=== PATIENT | female | born 1965 | race Hispanic/Latino ===

== ENCOUNTER → 2018-07-05 | Outpatient (CLI) | payer OTHER ==
[~2018-07-05] MED LIST: REGADENOSON 0.4 MG/5 ML PF SYG IVP SCH
== END | disposition home or self-care (01) ==
LOC: SHCH 07:59
PROVIDERS: ATTEND Internal Medicine Cardiovascular Disease
DX: I21.19 ST elevation (STEMI) myocardial infarction involving other coronary artery of inferior wall (principal)
CPT/HCPCS: 78452; 93017; 96374; A9500 ×2; J2785

== ENCOUNTER 2025-06-27 06:07 | Observation (INO) | payer BC ==
[2025-06-23 10:58] LABS: IMMATURE GRANULOCYTE ABSOLUTE 0.02 K/uL (0-1); NUCLEATED RED BLOOD CELLS 0.0 % (0.0-0.19); PLATELET COUNT (AUTO) 236 K/uL (130-400); RED BLOOD CELL COUNT(AUTO) 5.08 MIL/uL (4.00-5.50); RED CELL DISTRIBUTION WIDTH 13.6 % (11.0-15.5); WHITE BLOOD COUNT (AUTO) 6.8 K/uL (4.8-10.8)
[2025-06-23 11:02] VITALS: BP 131/55; PULSE 78; RESP 15; TEMP 98.4
[2025-06-23 11:02] LABS: APPEARANCE,URINE CLEAR (CLEAR); GLUCOSE, URINE (UA) NEGATIVE (NEGATIVE); LEUKOCYTE ESTERASE ,URINE NEGATIVE Leu/uL (NEGATIVE); NITRATE,URINE NEGATIVE (NEGATIVE); OCCULT BLOOD,URINE NEGATIVE (NEGATIVE)
[2025-06-23 11:10] LABS: CREATININE 0.6 mg/dL (0.5-1.0); GLOMERULAR FILTR. RATE CALC 103.0 mL/min (>90); GLUCOSE,RANDOM 93.0 mg/dL (70-105); SODIUM SERUM 140.0 mmol/L (136-145); UREA NITROGEN, BLOOD 20.0 mg/dL (7-18)
[2025-06-23 11:12] LABS: ADD UA MICROSCOPIC NO
[2025-06-23 11:31] LABS: INR 1.05 (0.85-1.15)
[2025-06-23 12:18] LABS: SQUAMOUS EPITHELIAL CELL,UR Rare /HPF (0-2)
--- NOTE | 2025-06-23 13:02 | NUR ---
PREOP KEELY RT INSTRUCTED PT ON INCENTIVE SPIROMETRY
--- NOTE | 2025-06-26 13:07 | NUR ---
REPORT REPORTED UA, CULTURE AND PT WAS RECENTLY TREATED FOR UTI WITH BACTRIM. DID INFORM DR COMER OF SENSITIVITY. RECEIVED ORDERS FOR LEVOFLOXACIN 500MG IV IN HOLDING.
[2025-06-27] VITALS (33 sets, daily range): BP systolic 112–187; BP diastolic 54–89; PULSE 67–94; RESP 14–21; TEMP 97.1–98.7; O2SAT 98
[~2025-06-27] VITALS: Ht 165.1 cm; Wt 119.7 kg
[~2025-06-27 06:07] MED LIST changes: +ACETAMINOPHEN PO; +APIX5TAB PO; +ATOR20TA65 PO; +CETI10TA57 PO; +CYCL-309 PO; +FLUT16H NASAL; +LORA0.5T83 PO; +LOSA100T59 PO; +METO-391 PO; +MONT-39 PO; +OMEP20CA12 PO; -REGADENOSON 0.4 MG/5 ML PF SYG IVP SCH; +SULF1TAB42 PO; +TRAMADOL PO; +VITAMIN D PO
[2025-06-27] MEDS: LACTATED RINGERS 1000ML 1,000 ML IV ONE (07:04)
[2025-06-27] MEDS ORDERED: LIDOCAINE HCL MPF 1% 5ML VIAL ONE (07:42)
[2025-06-27] MEDS ORDERED: MIDAZOLAM HCL 1 MG/ML 2ML VIAL ONE (07:43)
[2025-06-27] MEDS ORDERED: PROMETHAZINE HCL 25 MG/ML 1ML AMPULE IM PRN (08:00)
[2025-06-27] MEDS ORDERED: GLYCOPYRROLATE 0.2 MG/ML 5 ML VIAL ONE (11:00)
[2025-06-27] MEDS ORDERED: NEOSTIGMINE METHYLSULFATE 1MG/ML IV ONE (11:00)
[2025-06-27] MEDS ORDERED: FERROUS FUMARATE 324 MG TABLET PO PRN (11:30)
[2025-06-27] MEDS ORDERED: CALCIUM CARB 500MG PO PRN (11:30)
--- NOTE | 2025-06-27 11:30 | OP ---
Operative Note: DATE OF PROCEDURE: 06/27/25 SURGEON: ZAINAB COMER MD EVP MARKETING: [Jose Francisco Eric and Piedad Gross, TERRIE's] ANESTHESIA: [General anesthesia plus regional block] ANESTHESIOLOGIST/GLOBAL IMPLEMENTATION MANAGER: [] PREOPERATIVE DIAGNOSIS: [Right knee osteoarthritis] POSTOPERATIVE DIAGNOSIS: [Same] IMPLANTS: [Biomet vanguard. Femur size 72.5 PS right. Tibia size 71 fixed cruciate. Tibial liner size 71/75 X 12. Asymmetric patella size 34 X 8.5] PROCEDURE: [Right total knee arthroplasty] ESTIMATED BLOOD LOSS: [150 mL] INDICATIONS: [60-year-old female with a history of pain to the right knee secondary to osteoarthritis that has a longer responded to conservative treatment the patient is being admitted for a right total knee arthroplasty. Procedure understood by the patient, risks, benefits and possible complications and agreed signed the consent form.] DESCRIPTION OF PROCEDURE: [After adequate general anesthesia was achieved and regional block obtained the right lower extremity was prepped and draped in the usual manner previous placement of the tourniquet in the proximal thigh. The extremity was then elevated and exsanguinated with an Esmarch bandage and the tourniquet inflated to 300 mmHg the Esmarch band been then removed. With the knee in flexion a longitudinal incision was then made in the anterior aspect through the skin followed by dissection of the subcutaneous tissue. A paramedian approach was then made with the Bovie cautery cutting through the quadriceps tendon, medial patellar retinaculum and patellar tendon retinaculum. The retropatellar tendon fat was then excised and the soft tissue elements of the tibia were elevated subperiosteally and retractors were applied medially and laterally . The anterior and posterior cruciate ligaments were resected. With the use of a drill a starting hole was made in the distal femur entering the intramedullary canal and then after removal of the drill an intramedullary guide was inserted with a 5 degree valgus block that touched the distal femur and to this the distal femoral cutting guide was then applied anteriorly and was secured to the distal femur with the use of pins. The intramedullary guide was then removed and with the use of the oscillating saw we proceeded to resect the distal femur removing the fragments and the guide. The femoral sizer was then applied distally and drill holes were made removing the sizer and the 4-in-1 cutting block was then inserted and the anterior, posterior and chamfer cuts were made removing the fragments and the block. The PS cutting guide was then inserted and the intercondylar cut was made removing the fragment and the guide. The posterior cruciate ligament retractor was then inserted posterior to the tibia and this was brought forward proceeding then to apply the external tibial alignment guide and secured the proximal cutting guide to the tibia with the use of pins. With the use of the oscillating saw the proximal cut to the tibia tibia was made. The bone fragment was removed and the trial tibia plate was chosen. At this point the menisci were removed sharply and with the use of the curved osteotome the posterior osteophytes of the femur were removed. The trial components were then inserted at the femur and tibia with a trial tibial liner bringing the knee into extension noticing that the patient had a very stable knee in flexion, extension and with valgus and varus stress. The knee was maintained in extension and the patella was then addressed proceeding to measure its thickness and then with the use of the oscillating saw we removed nine mm from the articular surface and restored the height with application of a trial component after 3 peg holes were made. The patellofemoral ligament was removed and then the patellofemoral tracking was checked noticing to be significantly lateralized and for this reason a long lateral retinacular release was performed bringing the tracking back to normal. At this moment all the components were removed, the tibia after the metaphyseal defect was created and while cement was being mixed on the back table we proceeded to irrigate the joint with antibiotic solution and then cover the entry to the femoral canal with a bone plug. Once the cement was ready we proceeded to apply it first to the tibia surface inserting the final component and then to the femoral surface and inserted the final component removing the excess cement and then applying a trial liner bringing the knee into extension for compression. Then we proceeded to irrigate the patella surface and dried it applying then bone cement and the final patellar component was inserted and was secured with application of a clamp. The joint was irrigated with a warm diluted Betadine solution while the cement dried followed by irrigation with antibiotic solution. The trial liner was removed as well as the patellar clamp and we proceeded then to irrigate the posterior aspect of the joint to remove all the remaining debris and the final tibial liner was inserted and locked against the tibia. The range of motion was checked and noticed to be adequate with full extension and flexion, no laxity in valgus or varus stress and with adequate patellofemoral tracking. The patient had no anterior or posterior drawer. The tourniquet was then deflated and this was followed by hemostasis and the wound was then closed with approximation of the quadriceps tendon, patellar retinaculum and patellar tendon retinaculum with #1 Vicryl close stitches alternating with #1 Ethibond stitches, and closure of the subcutaneous tissue with 2-0 Monocryl inverted stitches and the skin was closed with 3-0 Monocryl subcuticularly. The wound was covered with a suction dressing followed by application of an Pedro bandage for compression and the drapes were then removed transferring the patient to the hospital bed and taken to recovery room for follow-up by anesthesia. There were no complications during the procedure.] ZAINAB COMER MD Jun 27, 2025 11:30
--- NOTE | 2025-06-27 13:15 | NUR ---
patient arrived to the unit at around 1315 s/p right total knee arthroplasty. Patient made comfortable in bed, pain 8/10. Will continue to monitor
[2025-06-27] MEDS: 0.9%NACL 1000ML 1,000 ML IV SCH (14:31)
--- NOTE | 2025-06-27 15:30 | NUR ---
DC PLAN PATIENT LIVES WITH SON. PATIENT INDEPENDENT ABLE TO PERFORM ADLS. NO SERVICES OR DMES. FEELS SAFE TO RETURN HOME. JASMEET SIGNED FOR HOME HEALTH AND ANY NETWORK FOR WALKER. PATIENT SAYING HAVING A LOT OF PAIN AND DID NOT WANT TO ANSWER MORE QUESTIONS. CM LET NURSE KNOW. WILL CALL MD TO SEE IF CAN GET A MED SOONER NEXT DOSE IS IN 6 HRS. CM ALSO REFILLED ICE IN ICE PACK. Addendum: 06/27/25 at 1536 by FERN SOMMERS RN CM Amended: Links added.
[2025-06-27] MEDS: NITROFURANTOIN MONOHYD/M-CRYST 100 MG CAPSULE PO SCH (19:55)
[2025-06-27] MEDS ORDERED: FAMOTIDINE 20MG TAB PO SCH (21:00)
[2025-06-27] MEDS ORDERED: ASPIRIN 81 MG EC TAB PO SCH (21:00)
[2025-06-28] VITALS (7 sets, daily range): BP systolic 126–144; BP diastolic 42–91; PULSE 81–100; RESP 18–20; TEMP 98.2–99.9; O2SAT 96–99
[2025-06-28 03:51] LABS: NUCLEATED RED BLOOD CELLS 0.0 % (0.0-0.19); PLATELET COUNT (AUTO) 227.0 K/uL (130-400); RED BLOOD CELL COUNT(AUTO) 4.14 MIL/uL (4.00-5.50); RED CELL DISTRIBUTION WIDTH 13.8 % (11.0-15.5); WHITE BLOOD COUNT (AUTO) 12.7 K/uL (4.8-10.8)
[2025-06-28 04:10] LABS: CREATININE 0.7 mg/dL (0.5-1.0); GLOMERULAR FILTR. RATE CALC 99.0 mL/min (>90); GLUCOSE,RANDOM 128.0 mg/dL (70-105); SODIUM SERUM 139.0 mmol/L (136-145); UREA NITROGEN, BLOOD 13.0 mg/dL (7-18)
[2025-06-28] MEDS ORDERED: COMPOUND IV MISC 1 EACH IVSOLN MISC PRN (07:30)
[2025-06-28] MEDS: ERGOCALCIFEROL (VITAMIN D2) 50,000 UNIT CAPSULE PO SCH (09:00)
--- NOTE | 2025-06-28 13:45 | NUR ---
ORTHO COORDINATOR: TEACHING REGARDING DVT AND PNEUMONIA PREVENTIONS, PAIN EXPECTATIONS AND PAIN MANAGEMENT. PATIENT IN BED, SON AT BEDSIDE. STEVE DRESSING CLEAN, DRY AND INTACT. CASSETTE FUNCTIONING, LIGHT FLASHING GREEN. B SCD SLEEVES IN PLACE AND FUNCTIONING. INCENTIVE SPIROMETER ON BEDSIDE TRAY. PRIMARY NURSE AT BEDSIDE. PAIN MANAGEMENT STRATEGY DISCUSSED. SCHEDULED AND PRN MEDICATION REVIEWED. NUMERIC PAIN SCALE REVIEWED. PATIENT INSTRUCTED TO CALL OUT FOR PRN PAIN MEDICATIONS, PROVIDE NUMERIC PAIN VALUE AND TYPE OF PAIN. PATIENT RETURN DEMONSTRATED PROPER USE OF INCENTIVE SPIROMETER, VERBALIZED PROPER FREQUENCY OF USE. PATIENT RETURN DEMONSTRATED PROPER FOOT FLEXION AND EXTENSION EXERCISES. SET EXPECTATIONS FOR PATIENT TO SHOWER TODAY, RATIONALE PROVIDED. PATIENT INTENDS TO DISCHARGE HOME WITH HOME [facility], DOES NOT HAVE WALKER. HOME HEALTH PROCESS REVIEWED. PATIENT INSTRUCTED HOME HEALTH AGENCY TO REMOVE DRESSING 7 DAYS AFTER SURGERY, ON THURSDAY. PATIENT ENCOURAGED TO CONTINUE PREMEDICATING PRIOR TO PHYSICAL THERAPY AND PERIODS OF HIGH ACTIVITY ONCE DISCHARGED, TO CONTINUE WITH INCENTIVE SPIROMETRY, TO INCREASE AMBULATION, AND HYDRATE. PATIENT VERBALIZED UNDERSTANDING TO ALL INSTRUCTIONS.
--- NOTE | 2025-06-28 15:44 | PN ---
Postop day number One. Status post right total knee arthroplasty. Vital signs stable, afebrile Labs reviewed Complaining of significant amount of pain and muscle spasms. Did poor to fair with physical therapy today. Awake, alert and oriented in mild distress secondary to pain. Normal ventilatory effort Dressing is intact. Distal neurovascular exam is normal Assessment: Status post right total knee arthroplasty Plan: Dismiss tomorrow. Arrangements completed. Vitals/Labs Vital Signs Date Time Temp Pulse Resp B/P (MAP) Pulse Ox O2 Delivery O2 Flow Rate FiO2 06/28/25 12:00 98.2 92 18 131/42 99 Room Air 06/28/25 04:45 21 06/27/25 20:00 0 Laboratory Tests 06/28/25 03:22 Medications Current Medications Levofloxacin/ Dextrose 100 ml @ 100 mls/hr ONCE ONCE IV Last administered on 06/27/25at 07:03; Start 06/27/25 at 07:00; Stop 06/27/25 at 07:59; Status DC Levofloxacin/ Dextrose 100 ml @ As Directed STK-MED ONCE .ROUTE; Start 06/27/25 at 06:47; Stop 06/27/25 at 06:47; Status DC Cefazolin Sodium 2 gm STK-MED ONCE .ROUTE Last administered on 06/27/25at 09:06; Start 06/27/25 at 06:47; Stop 06/27/25 at 06:47; Status DC Lactated Ringer's 1,000 ml @ As Directed STK-MED ONCE IV Last administered on 06/27/25at 07:04; Start 06/27/25 at 06:47; Stop 06/27/25 at 06:47; Status DC Ondansetron HCl 4 mg AD PRN IVP; Start 06/27/25 at 08:00; Stop 06/27/25 at 12:53; Status DC Metoclopramide HCl 10 mg AD PRN IVP; Start 06/27/25 at 08:00; Stop 06/27/25 at 12:53; Status DC Promethazine HCl 25 mg AD PRN IM; Start 06/27/25 at 08:00; Stop 06/27/25 at 12:53; Status DC Ketorolac Tromethamine 30 mg AD PRN IV; Start 06/27/25 at 08:00; Stop 06/27/25 at 12:53; Status DC Morphine Sulfate 2 mg AD PRN IVP Last administered on 06/27/25at 12:32; Start 06/27/25 at 08:00; Stop 06/27/25 at 12:53; Status DC Fentanyl Citrate 25 mcg Q5MIN PRN IVP Last administered on 06/27/25at 12:06; Start 06/27/25 at 08:00; Stop 06/27/25 at 12:53; Status DC Naloxone HCl 0.1 mg AD PRN IVP; Start 06/27/25 at 08:00; Stop 06/27/25 at 12:53; Status DC Lidocaine HCl 5 ml STK-MED ONCE .ROUTE; Start 06/27/25 at 07:42; Stop 06/27/25 at 07:43; Status DC Propofol 200 mg STK-MED ONCE IV; Start 06/27/25 at 07:43; Stop 06/27/25 at 07:43; Status DC Midazolam HCl 2 mg STK-MED ONCE .ROUTE; Start 06/27/25 at 07:43; Stop 06/27/25 at 07:43; Status DC Rocuronium [place] 50 mg STK-MED ONCE .ROUTE; Start 06/27/25 at 07:43; Stop 06/27/25 at 07:43; Status DC Fentanyl Citrate 100 mcg STK-MED ONCE .ROUTE; Start 06/27/25 at 07:43; Stop 06/27/25 at 07:43; Status DC Dexamethasone Sodium Phosphate 4 mg STK-MED ONCE .ROUTE; Start 06/27/25 at 07:46; Stop 06/27/25 at 07:46; Status DC Phenylephrine HCl 10 mg STK-MED ONCE IV; Start 06/27/25 at 07:46; Stop 06/27/25 at 07:46; Status DC Ondansetron HCl 4 mg STK-MED ONCE .ROUTE; Start 06/27/25 at 07:46; Stop 06/27/25 at 07:46; Status DC Ropivacaine 150 mg STK-MED ONCE .ROUTE; Start 06/27/25 at 07:49; Stop 06/27/25 at 07:49; Status DC Cefazolin Sodium 1 gm STK-MED ONCE .ROUTE Last administered on 06/27/25at 09:57; Start 06/27/25 at 08:37; Stop 06/27/25 at 08:37; Status DC Dexamethasone Sodium Phosphate 10 mg STK-MED ONCE .ROUTE; Start 06/27/25 at 09:05; Stop 06/27/25 at 09:05; Status DC Rocuronium [place] 50 mg STK-MED ONCE .ROUTE; Start 06/27/25 at 09:42; Stop 06/27/25 at 09:43; Status DC Fentanyl Citrate 100 mcg STK-MED ONCE .ROUTE; Start 06/27/25 at 09:44; Stop 06/27/25 at 09:44; Status DC Acetaminophen 100 ml @ As Directed STK-MED ONCE .ROUTE; Start 06/27/25 at 10:52; Stop 06/27/25 at 10:52; Status DC Glycopyrrolate 1 mg STK-MED ONCE .ROUTE; Start 06/27/25 at 11:00; Stop 06/27/25 at 11:01; Status DC Neostigmine Methylsulfate 10 mg STK-MED ONCE IV; Start 06/27/25 at 11:00; Stop 06/27/25 at 11:01; Status DC Sodium Chloride 1,000 ml @ 100 mls/hr Q10H IV Last administered on 06/28/25at 07:30; Start 06/27/25 at 11:30; Stop 06/28/25 at 11:29; Status DC Polyethylene Glycol 17 gm DAILY PO Last administered on 06/28/25at 09:20; Start 06/28/25 at 09:00; Stop 07/28/25 at 08:59 Bisacodyl 10 mg DAILY PRN RC; Start 06/30/25 at 11:30; Stop 07/30/25 at 11:29 Ketorolac Tromethamine 15 mg Q6H PRN IV; Start 06/27/25 at 11:30; Stop 07/02/25 at 11:29 Famotidine 20 mg BID PO; Start 06/27/25 at 21:00; Stop 06/27/25 at 13:42; Status DC Ferrous Fumarate 324 mg DAILY PRN PO; Start 06/27/25 at 11:30; Stop 07/27/25 at 11:29 Temazepam 15 mg HS PRN PO; Start 06/27/25 at 11:30; Stop 07/27/25 at 11:29 Ondansetron HCl 4 mg Q6H PRN IVP; Start 06/27/25 at 11:30; Stop 07/27/25 at 11:29 Calcium Carbonate 500 mg Q12H PRN PO; Start 06/27/25 at 11:30; Stop 07/27/25 at 11:29 Diphenhydramine HCl 25 mg Q6H PRN IVP; Start 06/27/25 at 11:30; Stop 07/27/25 at 11:29 Cefazolin Sodium 3 gm Q8H IVP; Start 06/27/25 at 16:30; Stop 06/27/25 at 11:38; Status DC Oxycodone HCl 5 mg Q4H PRN PO; Start 06/27/25 at 11:30; Stop 07/04/25 at 11:29 Oxycodone HCl 10 mg Q4H PRN PO Last administered on 06/28/25at 14:49; Start 06/27/25 at 11:30; Stop 07/04/25 at 11:29 Tramadol HCl 50 mg Q6H PRN PO; Start 06/27/25 at 11:30; Stop 07/02/25 at 11:29 Acetaminophen 1,000 mg Q8H PO Last administered on 06/28/25at 12:55; Start 06/27/25 at 11:30; Stop 07/27/25 at 11:29 Nitrofurantoin Macrocrystals 100 mg BID PO Last administered on 06/28/25at 09:20; Start 06/27/25 at 21:00; Stop 07/07/25 at 20:59 Aspirin 81 mg BID PO; Start 06/27/25 at 21:00; Stop 06/27/25 at 13:42; Status DC Cefazolin Sodium 3 gm/Sodium Chloride 100 ml @ 100 mls/hr Q8H IVPB; Start 06/27/25 at 16:30; Stop 06/28/25 at 01:07; Status DC Fentanyl Citrate 100 mcg STK-MED ONCE .ROUTE; Start 06/27/25 at 11:52; Stop 06/27/25 at 11:53; Status DC Fentanyl Citrate 100 mcg STK-MED ONCE .ROUTE; Start 06/27/25 at 12:04; Stop 06/27/25 at 12:04; Status DC Morphine Sulfate 2 mg STK-MED ONCE .ROUTE; Start 06/27/25 at 12:28; Stop 06/27/25 at 12:29; Status DC Ketorolac Tromethamine 15 mg STK-MED ONCE .ROUTE Last administered on 06/27/25at 12:46; Start 06/27/25 at 12:41; Stop 06/27/25 at 12:42; Status DC Cefazolin Sodium 3 gm/Sodium Chloride 100 ml @ 100 mls/hr Q8H IVPB Last administered on 06/28/25at 01:33; Start 06/28/25 at 01:30; Stop 06/28/25 at 09:35; Status DC Cefazolin Sodium 1 gm STK-MED ONCE .ROUTE; Start 06/28/25 at 01:29; Stop 06/28/25 at 01:29; Status DC Cefazolin Sodium 2 gm STK-MED ONCE .ROUTE; Start 06/28/25 at 01:30; Stop 06/28/25 at 01:30; Status DC Apixaban 5 mg BID PO Last administered on 06/28/25at 09:21; Start 06/28/25 at 09:00; Stop 07/28/25 at 08:59 Atorvastatin Calcium 20 mg HS PO; Start 06/28/25 at 21:00; Stop 07/28/25 at 20:59 Fluticasone Propionate 1 sprays AD NS; Start 06/28/25 at 02:00; Stop 07/28/25 at 01:59 Lorazepam 0.5 mg TID PRN PO; Start 06/28/25 at 02:00; Stop 07/28/25 at 01:59 Losartan Potassium 50 mg HS PO; Start 06/28/25 at 21:00; Stop 07/28/25 at 20:59 Metoprolol Succinate 50 mg BID PO Last administered on 06/28/25at 09:21; Start 06/28/25 at 09:00; Stop 07/28/25 at 08:59 Montelukast Sodium 10 mg HS PO; Start 06/28/25 at 21:00; Stop 07/28/25 at 20:59 Cetirizine HCl 10 mg DAILY PO Last administered on 06/28/25at 09:18; Start 06/28/25 at 09:00; Stop 07/28/25 at 08:59 Pantoprazole Sodium 40 mg AM PO Last administered on 06/28/25at 09:21; Start 06/28/25 at 09:00; Stop 07/28/25 at 08:59 Ergocalciferol 50,000 unit QWE PO; Start 06/28/25 at 09:00; Stop 07/28/25 at 08:59 Cefazolin Sodium 3 gm/Sodium Chloride 100 ml @ 100 mls/hr Q8H IVPB Last administered on 06/28/25at 09:44; Start 06/28/25 at 10:00; Stop 06/28/25 at 10:59; Status DC Cyclobenzaprine HCl 10 mg BID PRN PO; Start 06/28/25 at 16:00; Stop 07/28/25 at 15:59 ZAINAB COMER MD Jun 28, 2025 15:44
[2025-06-28] MEDS ORDERED: CYCLOBENZAPRINE HCL 10 MG TABLET PO PRN (16:00)
[2025-06-29] VITALS: BP 119/50; PULSE 100; RESP 20; TEMP 98.4
[2025-06-29 04:00] VITALS: BP 152/61; PULSE 94; RESP 18; TEMP 98.8
--- NOTE | 2025-06-29 06:03 | NUR ---
UP TO CHAIR PATIENT IS REFUSING TO GET UP TO CHAIR, STATES "YESTERDAY I WAS UP IN CHAIR AND DOCTOR DID NOT SHOW UP UNTIL 11AM". PATIENT IS NOT WANTING TO AMBULATE HAD A BED BATH DUE TO NOT WANTING TO GET UP DUE TO BEING AFRAID TO FALL. PATIENT EDUCATED ON THE IMPORTANCE OF ATTEMPTING TO GET UP. PATIENT VERBALIZED UNDERSTANDING SON AT BEDSIDE.
--- NOTE | 2025-06-29 06:39 | NUR ---
NOTE PATIENT IS NOT GETTING UP TO TOILET IS ASKING FOR BEDPAN INSTEAD.
[2025-06-29 08:00] VITALS: BP 132/67; PULSE 110; RESP 20; TEMP 98.4; O2SAT 94
--- NOTE | 2025-06-29 11:21 | DS ---
DISCHARGE SUMMARY [Date of admission: 06/27/2025 Date of discharge: 06/29/2025 Final diagnosis: Right Knee osteoarthritis, UTI on admission Surgical procedures: Right total Knee arthroplasty on 06/27/2025 Summary of History and Physical: The patient is a 60 year-old female with history of severe arthrosis to the right knee that has been present for several years and has been treated conservatively with no longer adequate response to treatment. The patient is being admitted for total knee arthroplasty. Previous medical history: Morbid obesity coronary artery disease, hypertension, dyslipidemia, paroxysmal atrial fibrillation, chronic anticoagulation therapy, hyperlipidemia Previous surgical history: Hysterectomy, transvaginal mesh, sinus surgery Family history: Diabetes mellitus, hypertension, heart disease, malignant neoplasm Social history: Negative for use of tobacco or alcohol. Allergies: Sulfa drugs Review of system: Negative. The patient completed treatment for UTI and was asymptomatic on admission but urine cultures came back positive once again for E coli. Hospital course: The patient was admitted and taken to the operating room for a total knee arthroplasty, procedure that went uneventful. Postoperatively the patient remained hemodynamically stable and afebrile. The patient received antibiotic prophylaxis as per protocol and resumed her anticoagulation therapy. Same time the patient was placed in the another antibiotic that was more sensitive to the previous one she was treated with to the bacteria that is causing the UTI. The patient was evaluated by physical therapy and started rehabilitation treatment with ambulation with the use of walker, weightbearing as tolerated, range of motion exercises and bed transfers. The patient was also evaluated by case management and arrangements were made for discharge. The patient tolerated diet well. On postop day #2 all the arrangements were completed. The dressing was changed and the wound was noted to be stable and the patient was dismissed. Condition on discharge: Good Disposition: The patient will be dismissed home with a home health . Follow-up will be done at the office in 3 weeks. The patient is to continue with physical therapy and rehabilitation at home and be ambulatory with the use of a walker, weightbearing as tolerated. Continue taking pain medication as instructed as well as anticoagulation medication and antibiotic for UTI. Continue with home medications also as instructed and continue with pre admission diet.] ] ZAINAB COMER MD Jun 29, 2025 11:21
[2025-06-29] MEDS ORDERED: NITR100C4 PO (11:31)
[2025-06-29] MEDS ORDERED: CYCL-309 PO (11:31)
[2025-06-29] MEDS ORDERED: PERCT PO (11:31)
[2025-06-29 12:00] VITALS: BP 135/71; PULSE 89; RESP 18; TEMP 98
--- NOTE | 2025-06-29 14:30 | NUR ---
DC PLAN VISITED WITH PATIENT. PATIENT ACCEPTED TO [facility]. FORMS FILLED AND SIGNED. COPAY OF $8.36 . GAVE INFO TO PATIENT AND FAMILY BUT PATIENT NOT HAPPY WITH WALKER. SAID WANTED ONE MORE WIDE. TRIED TO SEE ABOUT BARIATRIC WITH [facility] SAID IT WAS $150 NOT COVERED BY INSURANCE. PATIENT DOES NOT MEET WEIGHT REQUIREMENT. CM AND SON TRIED TO SEE IF THERE WAS A LOCAL WIDE WALKER MOST HAD TO BE ORDERED OR COST MORE THAT 150. FINAL PLAN IS TO LEND WALKER AND SHE WILL ORDER ONE ON LINE. ONCE IT GETS HERE SHE WILL BRING BACK OUR WALKER.
[2025-06-29 16:00] VITALS: BP 127/66; PULSE 116; RESP 18; TEMP 100.1
--- NOTE | 2025-06-29 18:42 | NUR ---
GAVE PATIENT DISCHARGE INSTRUCTIONS. REMOVED PATIENTS IV WITH CATHETER INTACT. PATIENT WAS TAKEN OUT VIA WHEELCHAIR TO A PRIVATE VEHICLE.
== END 2025-06-29 18:45 | disposition home health service (06) ==
LOC: DAH 06:07 → DAHIP 06:08 → DAH 06:08 → 4DH 13:15
PROVIDERS: ADMIT Orthopaedic Surgery; ATTEND Orthopaedic Surgery
DX: M17.11 Unilateral primary osteoarthritis, right knee (principal); M25.561 Pain in right knee; I25.10 Atherosclerotic heart disease of native coronary artery without angina pectoris; I10 Essential (primary) hypertension; E78.5 Hyperlipidemia, unspecified; E66.01 Morbid (severe) obesity due to excess calories; N39.0 Urinary tract infection, site not specified; Z79.01 Long term (current) use of anticoagulants; Z90.710 Acquired absence of both cervix and uterus; Z68.41 Body mass index [BMI] 40.0-44.9, adult; Z79.899 Other long term (current) drug therapy; Z98.890 Other specified postprocedural states
CPT/HCPCS: 80048 ×2; 85025; 85610; 87086 ×2; 87186; 81003; 36415 ×2; 87641; 27447; 96365; 88311; 88304; 97161; 97116 ×4; 97530 ×11; 96366; 96375; 96367; 85027; 96376; G0378 ×55; A4663; J7120 ×2; A4600; J3010 ×4; J0690 ×8; J1100 ×2; J1956; J2270; J3490 ×4; J2250; J2704; J2405; J2710; J2795; J1885 ×3; J2371; A9272; A4649 ×3; A4930; C1713; C1776; A5120; A4215; A4223 ×2; A4213; A4222; A4221; A4216